=== PATIENT | male | born 1990 | race Caucasian/White ===

== ENCOUNTER 2018-12-11 05:37 | Emergency (ER) | payer SELFPAY ==
[2018-12-11] MEDS ORDERED: NS 0.9% 1000 ML** 1,000 ML IV ONE (05:59)
--- NOTE | 2018-12-11 06:00 | ED ---
Neurological HPI - HPI Summary HPI Summary: A 28 y/o male brought in by [facility] ambulance, accompanied by his girlfriend, presents to [facility] with a chief complaint of a possible seizure after 21:00 . The patent reports that he has not had a seizure in a few months, but also claims that mild seizures are normal for him where he does not fall to the ground and start convulsing. His girlfriend claims that they were at his friend s house when at 21:00 he starting experiencing N/V, diaphoresis and a headache. They then left their friends house and in the car ride they stopped for another episode of N/V. He reports the mild seizure when walking into their house. Then at home at around 00:00 12/11/18 when they noticed weakness in his right side when going to the bathroom. His headache is located in the back side of his neck. Now he has confusion, forgetting simple things, and so they called an ambulance. He has right sided facial droop. At triage he rated his pain a 0/ 10 in severity. Hx of TBI. 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 He takes gabapentin. Mona he was called at 06:00. Brain CT was taken at 06:08. Vital signs while in room- HR: 62bpm, O2 Sat:97, BP :137/76 - History of Current Complaint Chief Complaint: EDNeurologicalDeficit Stated Complaint: SEIZURE Time Seen by Provider: 12/11/18 05:49 Hx Obtained From: Patient, Other: - girlfriend Onset/Duration: Sudden Onset, Started hours ago, Still Present Timing: Constant Onset Severity: Mild Current Severity: Mild Seizure Severity: Mild Number of Seizures: 1 Neurological Deficit Location: Generalized Pain Intensity: 0 Pain Scale Used: 0-10 Numeric - Allergy/Home Medications Allergies/Adverse Reactions: Allergies Allergy/AdvReac Type Severity Reaction Status Date / Time amphetamine [From Adderall] Allergy Unknown Verified 12/11/18 06:23 Reaction Details dextroamphetamine Allergy Unknown Verified 12/11/18 06:23 [From Adderall] Reaction Details Penicillins Allergy Unknown Verified 12/11/18 06:23 Reaction Details Home Medications: Home Medications Escitalopram (NF) [Lexapro 20 mg (NF)] 20 mg PO DAILY 12/11/18 [History Confirmed 12/11/18] Gabapentin [Neurontin] 200 mg PO TID 12/11/18 [History Confirmed 12/11/18] lamoTRIgine [Lamotrigine] 25 mg PO DAILY 12/11/18 [History Confirmed 12/11/18] PMH/Surg Hx/FS Hx/Imm Hx Sensory History: Denies: Hx Deafness Neurological History: Reports: Hx Seizures - Surgical History Surgery Procedure, Year, and Place: brain surgery at 14 where a right frontal lobe mass was removed Infectious Disease History: No Infectious Disease History: Denies: Traveled Outside the [place] in Last 30 Days - Family History Known Family History: Negative: Blood Disorder - Social History Lives: With Family Alcohol Use: None Hx Substance Use: No Substance Use Type: Reports: None Hx Tobacco Use: No Smoking Status (MU): Never Smoked Tobacco Review of Systems Positive: Vomiting, Nausea Neurological: Other - positive: possible seizure, right sided facial droop Positive: Headache, Weakness - right sided All Other Systems Reviewed And Are Negative: Yes Physical Exam - Summary Physical Exam Summary: Appearance: Well-appearing, Well-nourished, lying in bed comfortably Skin: Warm, dry, no obvious rash Eyes: sclera anicteric, no conjunctival pallor ENT: mucous membranes moist, pharynx appears normal Neck: Supple, nontender Respiratory: Clear to auscultation, no signs of respiratory distress Cardiovascular: Normal S1, S2. No murmurs. Normal distal pulses in tibial and radial bilaterally. Abdomen: Soft, nontender, normal active bowel sounds present Musculoskeletal: Normal, Strength/ROM Intact Neurological: A&Ox3, awake and alert, dense right sided hemiparesis of face, arm and leg. normal extraocular movements. mild disarthic but not aphasic, healed craniotomy scar on right parietal area. Psychiatric: affect is normal, does not appear anxious or depressed Triage Information Reviewed: Yes Vital Signs On Initial Exam: Initial Vitals Temp Pulse Resp BP Pulse Ox 97.7 F 70 18 137/76 97 12/11/18 05:45 12/11/18 05:45 12/11/18 05:45 12/11/18 05:45 12/11/18 05:45 Vital Signs Reviewed: Yes - [place] Coma Scale Best Eye Response: 4 - Spontaneous Best Motor Response: 6 - Obeys Commands Best Verbal Response: 5 - Oriented Coma Scale Total: 15 Diagnostics - Vital Signs Vital Signs Temp Pulse Resp BP Pulse Ox 12/11/18 05:45 97.7 F 70 18 137/76 97 - Laboratory Result Diagrams: 12/11/18 06:29 Lab Statement: Any lab studies that have been ordered have been reviewed, and results considered in the medical decision making process. - CT Brain CT Interpretation Completed By: Radiologist Summary of CT Findings: 1. Acute hemorrhage centered at the left basal ganglia measuring up to 6 cm. Adjacent edema. 2. Left frontal and right parieto- occipital acute subarachnoid hemorrhage. 3. Midline shift to the right measures 5 mm. ED physician has reviewed this imaging report. - EKG 06:10 Cardiac Rate: Bradycardia - 54 bpm EKG Rhythm: Sinus Bradycardia Summary of EKG Findings: Sinus bradycardia at 54 BPM, P waves, QRS complex, and T waves are within normal limits, T waves and intervals are normal, no ischemic changes. This is a normal EKG. NIH Scale - NIH Scale Level of Consciousness: Alert/Keenly Responsive Ask Patient the Month and His/Her Age: Both Correct Ask Pt to Open/Close Eyes and Mortgage Loan Computation Clerk/Release Non-Paretic Hand: Both Correctly Best Gaze (Only Horizontal Eye Movement): Normal Visual Field Testing: No Visual Loss Facial Paresis-Pt to Smile & Close Eyes or Grimace Symmetry: Partial Paralysis Motor Function - Right Arm: No Effort Against [place] Motor Function - Left Arm: No Drift-Holds 10 Seconds Motor Function - Right Leg: No Effort Against [place] Motor Function - Left Leg: No Drift-Holds 10 Seconds Limb Ataxia-Must be out of Proportion to Weakness Present: Absent Sensory (Use Pinprick to Test Arms/Legs/Trunk/Face): Normal Best Language (Describe Picture, Name Items): No Aphasia Dysarthria (Read Several Words): Slurs Some Words Extinction and Inattention: No Abnormality Total Score: 9 Course/Dx - Course Course Of Treatment: A 28 y/o male brought in by [facility] ambulance, accompanied by his girlfriend, presents to [facility] with a chief complaint of a possible seizure after 21:00 12/10/18. The patent reports that he has not had a seizure in a few months, but also claims that mild seizures are normal for him where he does not fall to the ground and start convulsing. His girlfriend claims that they were at his friends house when at 21:00 he starting experiencing N/V, diaphoresis and a headache. They then left their friends house and in the car ride they stopped for another episode of N/V. He reports the mild seizure when walking into their house. Then at home at around 00:00 12/11/18 when they noticed weakness in his right side when going to the bathroom. His headache is located in the back side of his neck. Now he has confusion, forgetting simple things, and so they called an ambulance. He has right sided facial droop. At triage he rated his pain a 0/10 in severity. Hx of TBI. 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 He takes gabapentin. Mona he was called at 06:00 during evaluation. The physical exam showed dense right sided hemiparesis of face, arm and leg. normal extraocular movements. mild disarthic but not aphasic, healed craniotomy scar on right parietal area. NIH of 9, GCS 15, Brain CT was taken at 06:08. Brain CT impression: 1. Acute hemorrhage centered at the left basal ganglia measuring up to 6 cm. Adjacent edema. 2. Left frontal and right parieto-occipital acute subarachnoid hemorrhage. 3. Midline shift to the right measures 5 mm. EKG at 06 :10 shows Sinus bradycardia at 54 BPM, P waves, QRS complex, and T waves are within normal limits, T waves and intervals are normal, no ischemic changes. This is a normal EKG. In the ED course the patient was given Zofran IV, Levetiracetam IVPB and Sodium chloride IV. Case discussed with Dr. Sinha, neuro, who recommended transfer. Discussed case with Dr. Jaron Garvin, neurosurgeon at [facility], who accepted the patient for transfer. The patient is agreeable with this plan. - Diagnoses Provider Diagnoses: Intracerebral hemorrhage - Physician Notifications Discussed Care Of Patient With: Will Sinha Time Discussed With Above Provider: 06:13 Instructed by Provider To: Other - Recommends transfer - Critical Care Time Critical Care Time: 30-74 min Discharge - Sign-Out/Discharge Documenting (check all that apply): Patient Departure - tranfer Patient Received Moderate/Deep Sedation with Procedure: No - Discharge Plan Condition: Critical Disposition: TRANS HIGHER LVL OF CARE FAC Referrals: No Primary Care Phys,NOPCP [Primary Care Provider] - - Billing Disposition and Condition Condition: CRITICAL Disposition: Trans Higher Lvl of Care Fac - Attestation Statements Document Initiated by Bhavya: Yes Documenting Scribe: Son Contreras Provider For Whom Bhavya is Documenting (Include Credential): Rohit Walter MD Scribe Attestation: Son Ferro, scribed for Rohit Walter MD on 12/11/18 at 0654. Scribe Documentation Reviewed: Yes Provider Attestation: The documentation as recorded by the Son saravia accurately reflects the service I personally performed and the decisions made by me, Rohit Walter MD Status of Scribe Document: Viewed Consult Consult: At 06:38 - Discussed case with Dr. Jaron Garvin, neurosurgeon at [facility], who accepted the patient for transfer.
[2018-12-11] MEDS ORDERED: Ondansetron INJ* 2 MG/ML VIAL IV ONE (06:01)
[2018-12-11] MEDS ORDERED: levETIRAcetam IV* 1,000 MG in NS 0.9% 100 ML* 100 ML IVPB ONE (06:29)
[2018-12-11 06:40] LABS: ABS Basophils 0 10^3/ul (0-0.2); ABS Eosinophils 0 10^3/ul (0-0.6); ABS Lymphocytes 1.2 10^3/ul (1.0-4.8); ABS Neutrophils 11.2 10^3/ul (1.5-7.7); ABS Nucleated RBC 0 10^3/ul; Eosinophil % 0.2 %; Hematocrit 49 % (42-52); Hemoglobin 16.7 g/dl (14.0-18.0); Lymphocyte % 9.3 %; Mean Corpuscular HGB Conc 34 g/dl (31-36); Mean Corpuscular Hemoglobin 32 pg (27-31); Mean Corpuscular Volume 93 fL (80-94); Mean Platelet Volume 9.2 fL (7.4-10.4); Nucleated Red Blood Cells % 0; Platelet Count 169 10^3/ul (150-450); Red Blood Count 5.21 10^6/ul (4.00-5.40); Red Cell Distribution Width 14 % (10.5-15); White Blood Count 13.5 10^3/ul (3.5-10.8)
[2018-12-11] MEDS: levETIRAcetam 500 MG IVPREMIX* 500 MG/100 ML BAG IV SCH ×2 (06:50→07:08)
[2018-12-11 06:55] LABS: Activated Partial Thrombo Time 30.5 seconds (26.0-36.3); INR 1.01 (0.77-1.02)
[2018-12-11 07:02] LABS: Albumin 4.6 g/dL (3.2-5.2); Albumin/Globulin Ratio 1.8 (1-3); BUN/Creatinine Ratio 13.3 (8-20); Calcium 9.9 mg/dL (8.6-10.3); EGFR Non-African American 123.1 (>60); Globulin 2.5 g/dL (2-4); HDL Cholesterol 32.7 mg/dL; Total Bilirubin 0.4 mg/dL (0.2-1.0); Total Protein 7.1 g/dL (6.4-8.9); Troponin I 0.01 ng/mL (<0.04)
== END 2018-12-11 07:21 | disposition short-term general hospital (02) ==
LOC: ED 05:37
DX: I61.9 Nontraumatic intracerebral hemorrhage, unspecified (principal); G81.91 Hemiplegia, unspecified affecting right dominant side; R00.1 Bradycardia, unspecified; R11.2 Nausea with vomiting, unspecified; R47.81 Slurred speech; R56.9 Unspecified convulsions; Z88.0 Allergy status to penicillin; Z88.8 Allergy status to other drugs, medicaments and biological substances
CPT/HCPCS: 36415; 70450; 71045; 80053; 80061; 83605; 84484; 85025; 85610; 85730; 93005; 96365; 96375; 99285; J2405